=== PATIENT | female | born 1990 | race African-American/Black ===

== ENCOUNTER 2019-03-29 23:17 | Emergency (ER) | payer MEDICAID ==
[~2019-03-29] VITALS: Ht 154.9 cm; Wt 54.5 kg
[2019-03-29 23:29] VITALS: Ht 154.9 cm; Wt 54.5 kg
[2019-03-30] MEDS ORDERED: OLANZAPINE 10 MG VIAL IM ONE
[2019-03-30] MEDS ORDERED: LORAZEPAM 2 MG INJ IV ONE
[2019-03-30 03:57] VITALS: BP 155/83; PULSE 83; RESP 15
[2019-03-30] MEDS ORDERED: LORAZEPAM 1 MG TAB PO ONE (04:00)
== END 2019-03-30 03:58 | disposition home or self-care (01) ==
LOC: E/R 23:17
DX: R10.84 Generalized abdominal pain (principal)
CPT/HCPCS: 96372; 96374; J2060; Z7502; Z7610